=== PATIENT | male | born 1975 | race Caucasian/White ===

== ENCOUNTER → 2017-04-22 | Outpatient (CLI) | payer BC ==
[2014-03-21 01:04] VITALS: BP 87/49
[~2017-04-22] MED LIST: ALLEGRA30 MG PO; SERTRALINE50 MG PO; TRAZODONE HCL50 MG PO
== END ==
LOC: LAB 07:20
DX: Z00.00 Encounter for general adult medical examination without abnormal findings (principal); F41.1 Generalized anxiety disorder; Z72.0 Tobacco use

== ENCOUNTER → 2017-05-28 | Outpatient (CLI) | payer BC ==
[2014-03-21 01:04] VITALS: BP 87/49
[2017-05-28 07:19] LABS: EOS # 0.1 (0.04-0.40); EOS % 1.7 % (0.0-4.0); HEMATOCRIT 47.1 % (42.0-52.0); LYMPH# 0.7 (1.50-4.00); MEAN CELL VOLUME 94 fl (78-100); MEAN CORPUSCULAR HEMOGLOBIN 32 pg (27-31); MEAN CORPUSCULAR HGB CONC 34 g/dL (33-37); MEAN PLATELET VOLUME 9.4 fl (7.4-10.4); MONO # 0.3 (0.20-0.80); NEU # 2.5 (1.40-6.50); PLATELET COUNT 166 K/mm3 (130-400); RED BLOOD COUNT 5.02 M/mm3 (4.20-5.60); WHITE BLOOD COUNT 3.6 K/mm3 (4.8-10.8)
== END ==
LOC: LAB 07:07
PROVIDERS: Nurse Practitioner Family
DX: D72.819 Decreased white blood cell count, unspecified (principal)

== ENCOUNTER → 2019-12-28 | Outpatient (CLI) | payer BC ==
[2014-03-21 01:04] VITALS: BP 87/49
[2019-12-28 08:49] LABS: EOS # 0.1 (0.04-0.40); EOS % 2.5 % (0.0-4.0); HEMATOCRIT 48.1 % (42.0-52.0); HEMOGLOBIN 16.2 g/dL (13.5-18.0); LYMPH# 0.8 (1.50-4.00); MEAN CELL VOLUME 95 fl (78-100); MEAN CORPUSCULAR HEMOGLOBIN 32 pg (27-31); MEAN CORPUSCULAR HGB CONC 34 g/dL (33-37); MEAN PLATELET VOLUME 9.6 fl (7.4-10.4); MONO # 0.3 (0.20-0.80); PLATELET COUNT 172 K/mm3 (130-400); RED BLOOD COUNT 5.07 M/mm3 (4.20-5.60); RED CELL DISTRIBUTION WIDTH 13.2 % (11.5-14.5); WHITE BLOOD COUNT 3.2 K/mm3 (4.8-10.8)
[2019-12-28 09:05] LABS: POTASSIUM 4.4 mmol/L (3.5-5.1)
[2019-12-28 09:06] LABS: ALBUMIN 4.2 g/dL (3.5-5.0)
[2019-12-28 09:07] LABS: CALCIUM 9.3 mg/dL (8.3-10.5)
[2019-12-28 09:08] LABS: TOTAL PROTEIN 6.5 g/dL (6.4-8.3)
[2019-12-28 09:10] LABS: TOTAL BILIRUBIN 1.1 mg/dL (0.2-1.2)
== END ==
LOC: LAB 08:22
PROVIDERS: Physician Assistant
DX: Z00.00 Encounter for general adult medical examination without abnormal findings (principal); Z12.5 Encounter for screening for malignant neoplasm of prostate; F41.1 Generalized anxiety disorder; Z72.0 Tobacco use; G47.00 Insomnia, unspecified

== ENCOUNTER → 2023-06-10 | Outpatient (CLI) | payer BC ==
[2023-06-10 08:09] LABS: BASO # 0.02 K/mm3 (0.02-0.10); EOS # 0.06 K/mm3 (0.04-0.40); HEMATOCRIT 49.1 % (42.0-52.0); HEMOGLOBIN 16.1 g/dL (13.5-18.0); LYMPH# 0.83 K/mm3 (1.50-4.00); MEAN CELL VOLUME 96 fl (78-100); MEAN CORPUSCULAR HEMOGLOBIN 31 pg (27-31); MEAN CORPUSCULAR HGB CONC 33 g/dL (33-37); MEAN PLATELET VOLUME 9.2 fl (7.4-10.4); MONO # 0.26 K/mm3 (0.20-0.80); NEU # 1.81 K/mm3 (1.40-6.50); PLATELET COUNT 164 K/mm3 (130-400); RED BLOOD COUNT 5.13 M/mm3 (4.20-5.60); RED CELL DISTRIBUTION WIDTH 12.7 % (11.5-14.5)
[2023-06-10 08:18] LABS: ALBUMIN 4.2 g/dL (3.5-5.0)
[2023-06-10 08:19] LABS: CALCIUM 9.1 mg/dL (8.3-10.5)
[2023-06-10 08:20] LABS: TOTAL PROTEIN 6.6 g/dL (6.4-8.3)
[2023-06-10 08:22] LABS: TOTAL BILIRUBIN 1.3 mg/dL (0.2-1.2)
== END ==
LOC: LAB 07:53
PROVIDERS: Physician Assistant
DX: Z00.00 Encounter for general adult medical examination without abnormal findings (principal); Z13.29 Encounter for screening for other suspected endocrine disorder; Z12.5 Encounter for screening for malignant neoplasm of prostate; M25.50 Pain in unspecified joint; G47.00 Insomnia, unspecified; F41.1 Generalized anxiety disorder; H61.23 Impacted cerumen, bilateral; E78.5 Hyperlipidemia, unspecified; K90.9 Intestinal malabsorption, unspecified

== ENCOUNTER → 2024-07-27 | Outpatient (CLI) | payer BC ==
[2024-07-27 09:00] LABS: BASO # 0.02 K/mm3 (0.02-0.10); EOS # 0.11 K/mm3 (0.04-0.40); EOS % 3.7 % (0.0-4.0); HEMATOCRIT 46.7 % (42.0-52.0); HEMOGLOBIN 15.8 g/dL (13.5-18.0); LYMPH# 0.76 K/mm3 (1.50-4.00); MEAN CELL VOLUME 95 fl (78-100); MEAN CORPUSCULAR HEMOGLOBIN 32 pg (27-31); MEAN CORPUSCULAR HGB CONC 34 g/dL (33-37); MEAN PLATELET VOLUME 9.7 fl (7.4-10.4); MONO # 0.22 K/mm3 (0.20-0.80); NEU # 1.87 K/mm3 (1.40-6.50); PLATELET COUNT 158 K/mm3 (130-400); RED BLOOD COUNT 4.92 M/mm3 (4.20-5.60); RED CELL DISTRIBUTION WIDTH 12.8 % (11.5-14.5)
[2024-07-27 09:06] LABS: ALBUMIN 4.1 g/dL (3.5-5.0)
[2024-07-27 09:07] LABS: CALCIUM 8.7 mg/dL (8.3-10.5)
[2024-07-27 09:08] LABS: TOTAL PROTEIN 6.1 g/dL (6.4-8.3)
[2024-07-27 09:10] LABS: TOTAL BILIRUBIN 0.7 mg/dL (0.2-1.2)
== END ==
LOC: LAB 08:24
PROVIDERS: Physician Assistant
DX: K90.9 Intestinal malabsorption, unspecified (principal); E78.5 Hyperlipidemia, unspecified